=== PATIENT | female | born 1985 | race Caucasian/White ===

== ENCOUNTER 2021-06-13 13:37 | Emergency (ER) | payer SELFPAY ==
--- NOTE | 2021-06-13 13:59 | ED_ITS ---
HPI - General Adult General Chief complaint: Overdose Stated complaint: USED 4 BAGS HEROIN, NO NARCAN NEEDED,PT ALERT Time Seen by Provider: 06/13/21 13:53 Source: patient Mode of arrival: EMS Limitations: no limitations History of Present Illness HPI narrative: 36-year-old female who is brought to the emergency department by ambulance for evaluation of somnolence after using 4 bags of heroin. No Narcan was given by EMS. The patient states that she snorts heroin daily. She states she uses 14 bags today. She does admit to using heroin prior to coming to the emergency department. She states that she has been under stress and has been very anxious. She denies being homicidal or suicidal. She states that she does not want to talk to a crisis counselor or to our care team about her drug addiction. She states that she has had very little sleep over the past 2-3 days. She denied fever, chills, nausea, vomiting, abdominal pain. She states that she just wants to go home and does not want any further testing or treatment. FOR[facility]LY [facility], [facility] Past Medical History FOR[facility], [facility] Narrative: Past medical history: Depression, anxiety, heroin use disorder. Surgical history: Cholecystectomy, right carpal tunnel release. Social history: The patient smokes 1 pack of cigarettes per day times 15 years. She states that she drinks alcohol occasionally. Patient does admit to using heroin daily, she states she uses up to 14 bags in intranasally daily. She smokes marijuana 3 to 4 times a week. Physical Exam Const: General: cooperative and healthy appearing Orientation/consciousness: oriented to person and oriented to place Limitations: no limitations HENMT: Head: Yes normal to inspection, Yes normocephalic and Yes atraumatic Ears: external ears normal General nose exam: Normal external nose present Face and sinus: Yes normal facial exam Mouth: Normal oral and palatal mucosa present Throat: Yes posterior oropharynx normal Eyes: Periorbital: periorbital findings normal Eyelids: Yes eyelids normal Conjunctivae: conjunctivae normal Sclerae: sclerae normal Corneas: corneas normal Pupils: Equal, round and reactive pupils present Direct Ophthalmoscopy: normal light reflex Neck: Neck: Yes full ROM, Yes no lymphadenopathy, Yes no meningeal signs, Yes trachea midline and Yes supple Chest: Chest palpation & inspection: normal inspection of the chest and normal palpation of entire chest wall Resp: Effort & Inspection: normal respiratory effort and able to speak in complete sentences Auscultation: clear to auscultation bilaterally Cardio: Rate: regular rate Rhythm: regular rhythm Heart sounds: S1 normal heart sound present, S2 normal heart sound present and no murmurs GI: Inspection: Yes normal to inspection Palpation (GI): Soft to palpation, nontender, no guarding, not rigid and No hepatosplenomegaly present : General: Yes no CVA tenderness Back/Spine/Pelvis: Back: no CVA tenderness Cervical Spine: normal cervical lordosis Thoracic/Lumbar Spine: thoracic and lumbar spine normal to inspection Skin: Lesions: no lesions Rashes: no rashes Wounds: no wounds Neuro: General: oriented to person, oriented to place and no meningeal signs Cranial nerves: Yes CN's II-XII intact bilaterally and Yes Equal, round and reactive pupils present Cognition (Neuro): normal cognition Motor exam (neuro): 5/5 motor strength present throughout Extrem: General: Yes normal to inspection and Yes full ROM Psych: Appearance: well kempt Mental Status: mental status grossly normal Speech and movement: Normal speech and movement present Affect: normal affect Attitude: cooperative Thought process: Normal thought process present Thought content: Normal thought content present Course Course Course Narrative: 36-year-old female who presents emergency department for evaluation somnolence after using 4 bags of heroin intranasally. The patient was not given Narcan in route to the hospital. At the time of my evaluation, the patient was awake and alert and was able to give me a full history. She states that she is not suicidal or homicidal. She states that she does not want to talk to our crisis counselor or to our care team. My plan was to discharge the patient to home with outpatient referrals the care team and to our crisis service. My plan was also to some the patient home with an intranasal Narcan dispense pack however prior to me completing her discharge instructions, the patient eloped.
--- NOTE | 2021-06-13 14:04 | PC.NURSE ---
Pt arrived via ambulance, seen by Dr. Segura. Pt eloped.
== END 2021-06-13 14:05 | disposition left against medical advice (07) ==
LOC: HO.ED 14:19
PROVIDERS: Emergency Provider Emergency Medicine Emergency Medical Services
DX: F11.90 Opioid use, unspecified, uncomplicated (principal); F41.9 Anxiety disorder, unspecified; F17.210 Nicotine dependence, cigarettes, uncomplicated; F12.90 Cannabis use, unspecified, uncomplicated
CPT/HCPCS: 99282; 99292